=== PATIENT | female | born 1995 | race Caucasian/White ===

== ENCOUNTER 2017-02-28 16:11 | Emergency (ER) | payer OTHER ==
[2017-02-28 16:32] VITALS: BP 123/59; PULSE 82; TEMP 98.7; BMI 18.7
--- NOTE | 2017-02-28 17:36 | PDOC ---
History of Present Illness - General Chief Complaint: Chest Pain Stated Complaint: SOB/CHEST PAIN/HEADACHE Time Seen by Provider: 02/28/17 17:28 History Source: Patient Exam Limitations: No Limitations - History of Present Illness Initial Comments: 02/28/17 18:17 21 yr female with history of anxiety and depression states she felt sharp mid sternal chest pain and tingling to her lower legs. Pt has had this before is followed by a brush painter for benign heart murmur. Pt has no history of arrythmia or valve defect. Pt states she has seen her PMD as well and has worked her up negative thyroid negative rheumatoid. Pt states the pain is worse with deep breath and when touching her left side of chest. no fever no cough no recent travel, or surgery. Timing/Duration: 1 hour Past History - Past Medical History Allergies/Adverse Reactions: Allergies Allergy/AdvReac Type Severity Reaction Status Date / Time amoxicillin trihydrate Allergy rash Verified 02/28/17 16:32 [From Augmentin] egg Allergy Verified 02/28/17 16:32 levofloxacin [From Levaquin] Allergy Verified 02/28/17 16:32 peanut Allergy Verified 02/28/17 16:32 potassium clavulanate Allergy rash Verified 02/28/17 16:32 [From Augmentin] Home Medications: Ambulatory Orders Alprazolam [Xanax] 0.25 mg PO TID PRN 06/27/16 Escitalopram Oxalate [Lexapro -] 10 mg PO DAILY 02/28/17 Asthma: Yes Cardiac Disorders: Yes (HEART MURMUR, VSD) Psychiatric Problems: Yes (ANXIETY) Thyroid Disease: Yes (HYPERTHROID) - Surgical History Appendectomy: Yes - Immunization History Immunization Up to Date: Yes - Psycho/Social/Smoking Cessation Hx Anxiety: Yes Suicidal Ideation: No Smoking History: Never smoked Have you smoked in the past 12 months: No Information on smoking cessation initiated: No Hx Alcohol Use: No Drug/Substance Use Hx: No Substance Use Type: None Review of Systems - Review of Systems Able to Perform ROS?: Yes Is the patient limited Somali proficient: No Constitutional: No: Symptoms Reported HEENTM: No: Symptoms Reported Respiratory: No: Symptoms reported Cardiac (ROS): Yes: Symptoms Reported, See HPI ABD/GI: No: Symptoms Reported : No: Symptoms Reported Musculoskeletal: No: Symptoms Reported Integumentary: No: Symptoms Reported Neurological: No: Symptoms reported *Physical Exam - Vital Signs Last Vital Signs Temp Pulse Resp BP Pulse Ox 98.7 F 82 17 123/59 99 02/28/17 16:30 02/28/17 16:30 02/28/17 16:30 02/28/17 16:30 02/28/17 16:30 - Physical Exam General Appearance: Yes: Nourished, Appropriately Dressed HEENT: positive: EOMI, YANN, Normal ENT Inspection, TMs Normal, Pharynx Normal Neck: positive: Supple. negative: Tender, Thyromegaly Respiratory/Chest: positive: Chest Tender (reproducable to touch left anterior chest ), Lungs Clear, Normal Breath Sounds Cardiovascular: positive: Regular Rhythm, Regular Rate Musculoskeletal: positive: Normal Inspection Extremity: positive: Normal Capillary Refill, Normal Inspection, Normal Range of Motion Integumentary: positive: Normal Color, Dry, Warm Neurologic: positive: Fully Oriented, Alert, Normal Mood/Affect, Normal Response , Motor Strength 02/18 ED Treatment Course - LABORATORY CBC & Chemistry Diagram: 02/28/17 18:10 02/28/17 18:10 Medical Decision Making - Medical Decision Making 02/28/17 18:23 cc: mid sternal chest pain with tingling to legs after her parents picked her up . pt is on vacation from college now. pt denies smoking no ETOH or drug use pt states pain with deep breath and to touch left side of chest will do EKG labs no risk factors for PE ,non smoker, no OCP , no recent surgery or travel, no calf pain or swelling. 02/28/17 19:20 Wells Criteria 0.0 points Low risk group: 1.3% chance of PE in an ED population. Another study assigned scores = 4 as PE Unlikely and had a 3% incidence of PE. 02/28/17 19:21 02/28/17 19:48 *DC/Admit/Observation/Transfer Diagnosis at time of Disposition: Atypical chest pain - Discharge Dispostion Disposition: HOME Condition at time of disposition: Good - Referrals Referrals: Yg Alcantara MD [Primary Care Provider] - - Patient Instructions Additional Instructions: please follow with your doctor TOMORROW or your brush painter your lab work today and chest xray are all within normal limits rest at home drink pleanty of water take motrin 600mg every 6hrs for pain as needed any worsening symptoms return to ER
[2017-02-28] MEDS ORDERED: IBUPROFEN 100 MG/5 ML UNIT DOSE CUPS PO ONE (17:53)
[2017-02-28] MEDS ORDERED: IBUPROFEN 100 MG/5 ML UNIT DOSE CUPS ONE (18:08)
[2017-02-28 18:20] LABS: MCH 27.4 pg (25.7-33.7); MCHC 32.7 g/dl (32.0-36.0); MEAN CELL VOLUME 83.9 fl (80-96); MEAN PLT VOLUME 8.3 fl (7.5-11.1); PLATELET COUNT 311 K/MM3 (134-434); RDW 14.7 % (11.6-15.6); WHITE BLOOD COUNT 6.1 K/mm3 (4.0-10.0)
[2017-02-28 19:41] LABS: ALBUMIN 4.2 g/dl (3.4-5.0); ANION GAP 8 (8-16); CALCIUM 9.1 mg/dL (8.5-10.1); CO2 25 mmol/L (21-32); COCKROFT - GAULT 149.0815; CREATININE 0.5 mg/dL (0.55-1.02); GLUCOSE,RANDOM 80 mg/dL (74-106); SGPT/ALT 22 U/L (12-78)
[2017-02-28 19:45] LABS: ALK PHOS 77 U/L (45-117); BILIRUBIN,TOTAL 0.3 mg/dL (0.2-1.0); TOT PROT 7.7 g/dl (6.4-8.2); TROPONIN I < 0.02 ng/ml (0.00-0.05)
[2017-02-28 19:47] LABS: SGOT/AST 22 U/L (15-37)
--- NOTE | 2017-03-01 17:13 | EKG ---
Test Reason : Blood Pressure : / mmHG Vent. Rate : 086 BPM Atrial Rate : 086 BPM P-R Int : 122 ms QRS Dur : 086 ms QT Int : 364 ms P-R-T Axes : 065 052 026 degrees QTc Int : 435 ms NORMAL SINUS RHYTHM POSSIBLE LEFT ATRIAL ENLARGEMENT BORDERLINE ECG WHEN COMPARED WITH ECG OF 27-JUN-2016 20:07, NO SIGNIFICANT CHANGE WAS FOUND Confirmed by DAGOBERTO GARCIA MD ([id number]) on 03/01/2017 5:12:44 PM Referred By: Confirmed By:DAGOBERTO GARCIA MD
== END 2017-02-28 20:01 | disposition home or self-care (01) ==
LOC: JERFT 16:11 → JER 16:11 → JERFT 20:01
DX: R07.89 Other chest pain (principal); R01.0 Benign and innocent cardiac murmurs; J45.909 Unspecified asthma, uncomplicated
CPT/HCPCS: 36415; 71020-TC; 80053; 82550; 84484; 84703; 85027; 93005; 93010; 99281-25

== ENCOUNTER 2018-03-27 21:30 | Emergency (ER) | payer OTHER ==
[2018-03-27 22:12] VITALS: BP 121/73; PULSE 91; TEMP 98.6; BMI 18.6
[2018-03-28] MEDS ORDERED: guaiFENesin/CODEINE 10 ML UNIT-DOSE CUPS PO ONE (00:45)
--- NOTE | 2018-03-28 00:45 | PDOC ---
History of Present Illness <Gypsy Sosa Vidya - Last Filed: 03/28/18 00:47> - General History Source: Patient Exam Limitations: No Limitations - History of Present Illness Initial Comments: 03/28/18 00:57 The patient is a 22 year old female, with a significant past medical history of heart murmur (VSD since ), anxiety, GERD, and asthma, who presents to the emergency department with, cough, shortness of breath, and intermittent fever. Her Tmax 101 degrees Fahrenheit. As per patient, she went to her PCP 4 days ago and tested positive for a viral parainfluenza virus. Her PCP prescribed Symbicort 2 times daily and Tylenol as needed for her fevers. She is positive for sick contacts at work. She denies recent chills, headache or dizziness. She denies recent nausea, vomit , diarrhea or constipation. She denies recent dysuria, frequency, urgency or hematuria. She denies recent chest pain. Allergies: Levaquin and Augmentin Past surgical history: Appendectomy PCP - Dr. Alcantara <Alanis Restrepo - Last Filed: 03/28/18 00:58> - General Chief Complaint: Cold Symptoms Stated Complaint: COUGH,SHORTNESS OF BREATH,CHEST PAIN Time Seen by Provider: 03/27/18 23:43 Past History - Past Medical History Asthma: Yes Cardiac Disorders: Yes (HEART MURMUR, VSD) COPD: No Psychiatric Problems: Yes (ANXIETY) Thyroid Disease: Yes (HYPERTHROID) - Surgical History Appendectomy: Yes - Immunization History Immunization Up to Date: Yes - Suicide/Smoking/Psychosocial Hx Smoking History: Never smoked Have you smoked in the past 12 months: No Information on smoking cessation initiated: No Hx Alcohol Use: No Drug/Substance Use Hx: No Substance Use Type: None <IanMohanlucy Dasilva - Last Filed: 03/28/18 00:47> <Alanis Restrepo - Last Filed: 03/28/18 00:58> - Past Medical History Allergies/Adverse Reactions: Allergies Allergy/AdvReac Type Severity Reaction Status Date / Time amoxicillin trihydrate Allergy rash Verified 03/27/18 22:12 [From Augmentin] egg Allergy Verified 03/27/18 22:12 levofloxacin [From Levaquin] Allergy Verified 03/27/18 22:12 peanut Allergy Verified 03/27/18 22:12 potassium clavulanate Allergy rash Verified 03/27/18 22:12 [From Augmentin] Home Medications: Ambulatory Orders Alprazolam [Xanax] 0.25 mg PO TID PRN 06/27/16 Escitalopram Oxalate [Lexapro -] 10 mg PO DAILY 02/28/17 Respiratory Specific PMHX - Complaint Specific PMHX Bronchitis: No Pneumonia: No <Gypsy Sosa - Last Filed: 03/28/18 00:47> Review of Systems - Review of Systems Able to Perform ROS?: Yes Comments:: 03/28/18 00:57 CONSTITUTIONAL: Present: Fever. Absent: no chills, no fatigue EYES: Absent: visual changes ENT: Present: Nasal congestion. Absent: ear pain, no sore throat CARDIOVASCULAR: Absent: chest pain, no palpitations RESPIRATORY: Present: Dry cough, no SOB GI: Absent: abdominal pain, no nausea, no vomiting, no constipation, no diarrhea GENITOURINARY: Absent: dysuria, no frequency, no hematuria MUSKULOSKELETAL: Absent: back pain, no arthralgia, no myalgia SKIN: Absent: rash NEURO: Absent: headache All Other Systems: Reviewed and Negative <Alanis Restrepo - Last Filed: 03/28/18 00:58> *Physical Exam - Vital Signs Last Vital Signs Temp Pulse Resp BP Pulse Ox 98.6 F 91 H 20 121/73 99 03/27/18 21:55 03/27/18 21:55 03/27/18 21:55 03/27/18 21:55 03/27/18 21:55 <Gypsy Sosa - Last Filed: 03/28/18 00:47> - Vital Signs Last Vital Signs Temp Pulse Resp BP Pulse Ox 98.6 F 91 H 20 121/73 99 03/27/18 21:55 03/27/18 21:55 03/27/18 21:55 03/27/18 21:55 03/27/18 21:55 - Physical Exam Comments: 03/28/18 00:58 GENERAL: Well developed, well nourished. Awake and alert. No acute distress. HEENT: Nasal congested. Normocephalic, atraumatic. PERRLA, EOMI. No conjunctival pallor. Sclera are non-icteric. Moist mucous membranes. Oropharynx is clear. NECK: Supple. Full ROM. No JVD. Carotid pulses 2+ and symmetric, without bruits. No thyromegaly. No lymphadenopathy. CARDIOVASCULAR: Regular rate and rhythm. No murmurs, rubs, or gallops. Distal pulses are 2+ and symmetric. PULMONARY: No evidence of respiratory distress. Lungs clear to auscultation bilaterally. No wheezing, rales or rhonchi. ABDOMINAL: Soft. Non-tender. Non-distended. No rebound or guarding. No organomegaly. Normoactive bowel sounds. MUSCULOSKELETAL Normal range of motion at all joints. No bony deformities or tenderness. No CVA tenderness. EXTREMITIES: No cyanosis. No clubbing. No edema. No calf tenderness. SKIN: Warm and dry. Normal capillary refill. No rashes. No jaundice. NEUROLOGICAL: Alert, awake, appropriate. Cranial nerves 2-12 intact. No deficits to light touch and temperature in face, upper extremities and lower extremities. No motor deficits in the in face, upper extremities and lower extremities. Normoreflexic in the upper and lower extremities. Normal speech. Toes are down- going bilaterally. Gait is normal without ataxia. PSYCHIATRIC: Cooperative. Good eye contact. Appropriate mood and affect. <Alanis Restrepo - Last Filed: 03/28/18 00:58> *DC/Admit/Observation/Transfer <Gypsy Sosa - Last Filed: 03/28/18 00:47> - Attestations Scribe Attestion: 03/28/18 00:58 Documentation prepared by Alanis Restrepo, acting as medical surgical tech for Gypsy Sosa MD. <Alanis Restrepo - Last Filed: 03/28/18 00:58> Diagnosis at time of Disposition: Parainfluenza infection - Discharge Dispostion Condition at time of disposition: Stable - Referrals Referrals: Yg Alcantara MD [Primary Care Provider] - - Patient Instructions Printed Discharge Instructions: DI for Viral Upper Respiratory Infection -- Adult Additional Instructions: please take tylenol for fever or bodyaches rest Use over the counter cough suppressant and nasal decongestant if you wish Keep hydrated,drink plenty of fluids - Post Discharge Activity
[2018-03-28] MEDS ORDERED: ALBUTEROL SO4 2.5/IPRATROPIUM 0.5 INH SOL 3 ML VIAL.NEB. NEB ONE ×2 (00:46→00:56)
[2018-03-28] MEDS ORDERED: predniSONE 20 MG TABLET (UD) PO ONE (00:46)
[2018-03-28] MEDS ORDERED: predniSONE 20 MG TABLET (UD) ONE (00:55)
[2018-03-28] MEDS ORDERED: guaiFENesin/CODEINE 5 ML UNIT-DOSE CUPS PO ONE (00:56)
== END 2018-03-28 01:29 | disposition home or self-care (01) ==
LOC: JERFT 21:30 → JER 21:30
PROC: 3E0F7GC Introduction of Other Therapeutic Substance into Respiratory Tract, Via Natural or Artificial Opening (ICD-10-PCS; principal; 2018-03-27)
DX: B34.8 Other viral infections of unspecified site (principal); R01.1 Cardiac murmur, unspecified; F41.9 Anxiety disorder, unspecified; E07.9 Disorder of thyroid, unspecified
CPT/HCPCS: 94640; 99281-25; J7620

== ENCOUNTER 2022-12-07 11:58 | Emergency (ER) | payer OTHER ==
[2022-12-07 12:05] VITALS: BP 115/52; PULSE 79; RESP 20; TEMP 97.9; BMI 19.5
[2022-12-07] MEDS ORDERED: KETOROLAC TROMETHAMINE 30 MG/1 ML VIAL IM ONE (12:31)
[2022-12-07] MEDS ORDERED: KETOROLAC TROMETHAMINE 30 MG/1 ML VIAL ONE (12:36)
== END 2022-12-07 13:21 | disposition home or self-care (01) ==
LOC: JER 11:58 → JERFT 11:58
PROC: 3E023GC Introduction of Other Therapeutic Substance into Muscle, Percutaneous Approach (ICD-10-PCS; principal; 2022-12-07)
DX: M25.561 Pain in right knee (principal)
CPT/HCPCS: 99284-25